=== PATIENT | male | born 1955 | race Caucasian/White ===

== ENCOUNTER 2022-08-14 12:23 | Emergency (ER) | payer OTHER ==
[~2022-08-14] VITALS: Ht 170.2 cm; Wt 87.2 kg
[2022-08-14 12:57] VITALS: BP 189/82
--- NOTE | 2022-08-14 13:11 | NUR ---
Kerry cheung in [facility] - 08/14/22 at 1341 by [facility] ARELIS
--- NOTE | 2022-08-14 13:11 | NUR ---
PT AMB TO BED 12.
--- NOTE | 2022-08-14 15:57 | NUR ---
66Y/O MALE PRESENTS TO ED WITH C/O HIGH BLOOD PRESSURE. PT REPORTS SEEING PCP TODAY FOR ANNUAL CHECK UP AND REFERRED TO COME TO ED AFTER A BP OF 200/98 WAS NOTED. PT REPORTS A CONSTANT, THROBBING LIKE, 7/10 HEAD PAIN AND HEARING A "BUZZING" BILATERALLY IN HIS EARS. PT REPORTS TAKING BP MEDS THIS MORNING, BP UPON ASSESSMENT 169/92. PT DENIES DIZZINESS.
--- NOTE | 2022-08-14 16:09 | NUR ---
Patient discharged with v/s stable. Written and verbal after care instructions given and explained. Patient verbalized understanding. Ambulatory with steady gait. All questions addressed prior to discharge. Advised to follow up with PMD.
[2022-08-14 16:10] VITALS: BP 181/94
== END 2022-08-14 16:09 | disposition home or self-care (01) ==
LOC: MED 12:23
DX: I10 Essential (primary) hypertension (principal); E11.9 Type 2 diabetes mellitus without complications; Z79.4 Long term (current) use of insulin; Z79.899 Other long term (current) drug therapy
CPT/HCPCS: 81002; 99282